=== PATIENT | female | born 1985 | race Caucasian/White ===

== ENCOUNTER 2017-05-31 12:22 | Outpatient (CLI) | payer MEDICAID, OTHER ==
[2017-05-31] MEDS ORDERED: LACTATED RINGERS 2,000 ML ONE (12:40)
[2017-05-31] MEDS ORDERED: LACTATED RINGERS 1,000 ML IV ONE (12:56)
--- NOTE | 2017-05-31 14:27 | Ultrasound Report ---
ULTRASOUND OB LIMITED History: well being, verify if presentation Technique: Transabdominal ultrasound with Doppler interrogation. Gestation: Single Position: Breech Heart Rate: 131 BPM
[2017-05-31] MEDS ORDERED: BRETHINE SUB-Q ONE (14:43)
[2017-05-31 14:50] VITALS: BP 121/70
[2017-05-31] MEDS ORDERED: LACTATED RINGERS 1,000 ML IV SCH (15:00)
== END 2017-05-31 16:00 | disposition home or self-care (01) ==
LOC: TRG 12:22
PROVIDERS: ATTEND Obstetrics & Gynecology
DX: O32.1XX0 Maternal care for breech presentation, not applicable or unspecified (principal); O47.1 False labor at or after 37 completed weeks of gestation; Z3A.37 37 weeks gestation of pregnancy
CPT/HCPCS: 59025; 76815; 96360; 96361; 96372; J3105; J7120

== ENCOUNTER 2017-06-11 12:43 | Inpatient (IN) | payer OTHER ==
--- NOTE | 2017-06-11 14:58 | Ultrasound Report ---
FINAL REPORT EXAM: US OB LIMITED HISTORY: breech presentation TECHNIQUE: Limited transabdominal OB ultrasound. PRIORS: None currently available. FINDINGS: Single intrauterine . Presentation: Breech. heart rate: 139 BPM. IMPRESSION: Single live intrauterine .
[2017-06-11] MEDS ORDERED: LACTATED RINGERS 1,000 ML IV ONE (15:00)
[2017-06-11] MEDS ORDERED: REGLAN IV ONE ×2 (15:58→17:52)
[2017-06-11] MEDS ORDERED: PEPCID IV SCH ×2 (15:58→17:52)
[2017-06-11] MEDS ORDERED: BICITRA PO SCH (15:58)
[2017-06-11] MEDS ORDERED: ANCEF/STERILE WATER 2 GM/20 ML 2 GM/20 ML SYRINGE IV NR ×2 (16:00→18:00)
[2017-06-11] MEDS ORDERED: PITOCin/NS 20 UNIT/1000ML DRIP 20 UNITS/1,000 ML BAG IV SCH ×3 (16:00→21:00)
[2017-06-11] MEDS ORDERED: BRETHINE SUB-Q SCH (16:02)
[2017-06-11 16:14] LABS: Basophils % (Auto) 0.2 % (0.0-1.8); Eosinophils % (Auto) 0.2 % (0.0-4.3); Hematocrit 37.1 % (30.3-42.9); Hemoglobin 12.7 gm/dl (10.1-14.3); Lymphocytes # (Auto) 1.8 K/mm3 (1.2-5.4); Mean Corpuscular HGB Conc 34 % (30-34); Mean Corpuscular Hemoglobin 33 pg (28-32); Mean Corpuscular Volume 96 fl (79-97); Monocytes # (Auto) 0.6 K/mm3 (0.0-0.8); Platelet Count 166 K/mm3 (140-440); Red Blood Count 3.89 M/mm3 (3.65-5.03); Red Cell Distribution Width 14.5 % (13.2-15.2)
[2017-06-11] MEDS: LACTATED RINGERS 1,000 ML IV SCH ×2 (17:00→18:53)
[2017-06-11] MEDS ORDERED: BICITRA PO ONE (17:52)
[2017-06-11] MEDS ORDERED: BRETHINE SUB-Q PRN (17:53)
[2017-06-11] MEDS ORDERED: BRETHINE IVP PRN (17:53)
[2017-06-11] MEDS ORDERED: LACTATED RINGERS 1,000 ML IV SCH (18:00)
--- NOTE | 2017-06-11 18:01 | History and Physical Report ---
History of Present Illness Date of examination: 06/11/17 Date of admission: 06/11/17 12:44 Chief complaint: 39 weeks in labor, breech. History of present illness: Patient is 32 year old , LMP 08/24/16, EDC 06/17/17 at 39 weeks and 1 day who complains of having contractions since this AM. She denies any fluid leakage or bleeding. She reports good movement. Exam: cervix: 3cm/80%/-2. Sono at bedside: breech presentation. Past History Past Surgical History: no surgical history Social history: no significant social history - Obstetrical History Expected Date of Delivery: 06/17/17 Actual Gestation: 39 Week(s) 1 Day(s) : 2 Para: 1 Number of Pregnancies: 1 Number of Living Children: 1 Medications and Allergies Allergies Allergy/AdvReac Type Severity Reaction Status Date / Time No Known Allergies Allergy Verified 05/31/17 12:35 Home Medications Medication Instructions Recorded Confirmed Last Taken Type Vit-Fe Fumar-FA [ 1 tab PO QDAY 05/31/17 05/31/17 05/30/17 21: 00 History Vitamin] Active Meds: Active Medications Citric Acid/Sodium Citrate (Bicitra) 30 ml PO ONCE TORI Stop: 06/12/17 15:57 Famotidine (Pepcid) 20 mg IV ONCE TORI Stop: 06/12/17 15:57 Famotidine (Pepcid) 20 mg IV ONCE ONE Stop: 06/11/17 17:53 Cefazolin Sodium (Ancef/Sterile Water 2 Gm/20 Ml) 2 gm in 20 mls @ 80 mls/hr IV PREOP NR PRN Reason: Protocol Stop: 06/12/17 15:59 Lactated Ringer's (Lactated Ringers) 1,000 mls @ 2,250 mls/hr IV PREOP TORI Stop: 06/12/17 16:27 Oxytocin/Sodium Chloride (Pitocin/Ns 20 Unit/1000ml Drip) 20 units in 1,000 mls @ 0 mls/hr IV TITR TORI PRN Reason: As Directed Lactated Ringer's (Lactated Ringers) 1,000 mls @ 2,250 mls/hr IV PREOP TORI Stop: 06/12/17 18:27 Oxytocin/Sodium Chloride (Pitocin/Ns 20 Unit/1000ml Drip) 20 units in 1,000 mls @ 0 mls/hr IV TITR TORI PRN Reason: As Directed Cefazolin Sodium (Ancef/Sterile Water 2 Gm/20 Ml) 2 gm in 20 mls @ 80 mls/hr IV PREOP NR PRN Reason: Protocol Stop: 06/12/17 17:59 Influenza Virus Vaccine Quadrival (Fluarix Quad [id number](36 Mos+) 0.5 ml IM .ONCE ONE Stop: 06/12/17 12:01 Metoclopramide HCl (Reglan) 10 mg IV ONCE ONE Stop: 06/11/17 17:53 Terbutaline Sulfate (Brethine) 0.25 mg SUB-Q ONCE TORI Stop: 06/12/17 16:01 - Vital Signs Vital signs: Vital Signs Temp 99.1 F 06/11/17 13:05 Temp Pulse Resp BP Pulse Ox 99.1 F 55 L 127/59 06/11/17 13:05 06/11/17 13:09 06/11/17 13:09 - Physical Exam Cardiovascular: Normal S1, Normal S2 Lungs: Positive: Clear to auscultation Vulva: both: normal Adnexa: both: normal Deep Tendon Reflex Grade: Normal +2 - Obstetrical FHR: category 1 Uterine Contraction Monitor Mode: External Cervical Dilatation: 3 Cervical Effacement Percentage: 80 station: -2 Uterine Contraction Pattern: Irregular Results Result Diagrams: 06/11/17 15:30 Abnormal lab results 06/11/17 Range/Units 15:30 MCH 33 H (28-32) pg Seg Neutrophils % 73.6 H (40.0-70.0) % All other labs normal. Assessment and Plan - Patient Problems (1) 39 weeks gestation of Current Visit: Yes Status: Acute (2) Active labor Current Visit: Yes Status: Acute Plan to address problem: Admit to labor floor. Routine admitting labs. and toco monitoring. Pt was counselled for C/section for breech. (3) Breech presentation Current Visit: Yes Status: Acute Plan to address problem: Patient has been counselled for C/section. c2 tactical analysis technician was used. Risks, benefits of the procedure were discussed in detail with the patient such as infection, hemorrhage requiring blood transfusion, injury to the bowel, bladder and blood vessels. She expressed understanding, her questions were answered, she gave her informed consent. Anesthesia has been notified. Pt is NPO.
[2017-06-11] MEDS ORDERED: PHENERGAN PO PRN ×2 (18:15→21:14)
[2017-06-11] MEDS ORDERED: NARCAN 0.4 MG/1 ML IV PRN ×3 (18:15→21:14)
[2017-06-11] MEDS ORDERED: DILAUDID IV PRN ×2 (18:15)
[2017-06-11] MEDS ORDERED: PHENERGAN PR PRN ×2 (18:15→21:14)
[2017-06-11] MEDS ORDERED: ZOFRAN IV PRN ×3 (18:15→21:14)
--- NOTE | 2017-06-11 18:15 | Anesthesia Consultation ---
Anesthesia Consult and Med Hx Date of service: 06/11/17 - Airway Anesthetic Teeth Evaluation: Good ROM Head & Neck: Adequate Mental/Hyoid Distance: Adequate Mallampati Class: Class I Intubation Access Assessment: Good - Pulmonary Exam CTA: Yes - Cardiac Exam Cardiac Exam: RRR - Pre-Operative Health Status ASA Pre-Surgery Classification: ASA2 Proposed Anesthetic Plan: General, Spinal - Pulmonary Hx Asthma: No COPD: No Hx Pneumonia: No - Cardiovascular System Hx Hypertension: No - Central Nervous System Hx Seizures: No Hx Psychiatric Problems: No - Endocrine Hx Renal Disease: No Hx End Stage Renal Disease: No Hx Hypothyroidism: No Hx Hyperthyroidism: No - Hematic Hx Anemia: No Hx Sickle Cell Disease: No - Other Systems Hx Alcohol Use: No
[2017-06-11] MEDS ORDERED: SODIUM CHLORIDE FLUSH SYRINGE 10 ML IV SCH (19:00)
[2017-06-11] MEDS ORDERED: MORPHINE ONE (19:05)
[2017-06-11] MEDS ORDERED: NEO SYNEPHRINE ONE (19:28)
[2017-06-11] MEDS ORDERED: NACL 0.9% IR ONE (19:30)
[2017-06-11] MEDS ORDERED: fentaNYL-BUPIV 2 MCG/ML-0.125% 200 MCG/100 ML BAG EPIDURAL SCH (19:30)
[2017-06-11] MEDS ORDERED: WATER FOR IRRIG STERILE IR ONE (19:30)
[2017-06-11] MEDS ORDERED: METHERGINE IM ONE ×2 (19:55→20:02)
[2017-06-11] MEDS ORDERED: VERSED ONE (20:31)
[2017-06-11] MEDS ORDERED: TUCKS PAD TP PRN (20:55)
[2017-06-11] MEDS ORDERED: MYLICON PO PRN (20:55)
[2017-06-11] MEDS ORDERED: SENOKOT PO PRN (20:55)
[2017-06-11] MEDS ORDERED: MORPHINE IV PRN (20:55)
[2017-06-11] MEDS ORDERED: TORADOL IV PRN ×2 (20:55)
[2017-06-11] MEDS ORDERED: LANSINOH TP PRN (20:55)
[2017-06-11] MEDS ORDERED: TYLENOL PO PRN (20:55)
[2017-06-11] MEDS ORDERED: SODIUM CHLORIDE FLUSH SYRINGE 10 ML IV NR ×2 (21:00→22:00)
--- NOTE | 2017-06-11 21:05 | Operative Report ---
Operative Report Operative Report: Preoperative diagnosis: 1. SIUP at 39 weeks and 1 day in active labor. 2. Breech presentation. Postoperative diagnosis: same as preop diagnosis. Procedure: Primary low transverse C/section. Surgeon: Dr. Russell Millwright Instructor: none Anesthesia: spinal IVF: 1 liter RL EBL: 1 liter Urine: 200 cc clear Complications: Intraoperative uterine atony responsive to IV pitocin and IM methergine. Intraoperative findings: 1. Female found in an SHARYN position, delivered at 7:19 PM, Apgars of 9/9 at 1 and 5 mins respectively. 2. Filmy adhesions between parietal peritoneum and omentum. 3. Normal ovaries and fallopian tubes bilaterally. Procedure details: Risks, benefits, and alternatives of the procedure were discussed in detail with the patient which included but not limited to the risk of infection, hemorrhage requiring blood transfusion, and injury to the bowel or bladder and blood vessels. The patient expressed understanding, her questions were answered , and she gives informed consent. The patient was taken to the operating room with an IV fluids infusing Ringers lactate. In the operating room, she was placed in a sitting position and given spinal anesthesia. She was then placed in the dorsal supine position with a leftward tilt. Forrester catheter and Venodyne boots were placed. The abdomen was washed and she was prepared and draped in usual sterile fashion. After confirming adequate spinal anesthesia, a Pfannenstiel skin incision was made in the lower abdomen about 2 cm above the pubic symphysis using the scalpel. This incision was carried down to the underlying fascia using the Bovie. 2 straight Kocker clamps were used to grasp the upper edge of the fascia from which the underlying rectus abdominis muscle was dissected off using the Bovie. A similar procedure was done with the edge of the fascia to dissect the underlying rectus abdominis muscle. The muscle was bluntly from the midline by pulling. The parietal peritoneum was grasped with 2 hemostat clamps and entered sharply using Metzenbaum scissors. A quick survey of the anatomy revealed a gravid uterus, normal fallopian tubes and ovaries bilaterally. There were multiple filmy adhesions between the anterior peritoneum to the omentum. A bladder flap was created. Rich'O retractor was placed at the incision for proper visualization. A low transverse incision was made in the lower uterine segment using the scalpel and extended bilaterally in a curvilinear fashion using bandage seizures. The amniotic sac was ruptured, there was copious amount of clear amniotic fluids. The was found in a walter breech presentation. The body was delivered up to the thorax, the anterior shoulder was delivered, the infant was rotated to 180 to bring the posterior shoulder to an anterior position which was delivered. Then, the head was flexed and delivered atraumatically at 7:55 PM. The cord was clamped 2 and cut and infant was handed off to awaiting superintendent car construction. The was a female, Apgars were 9 at 1 minute and 9 at 5 minutes, weight 8 lbs. 15 oz. Cord blood was collected. The placenta was delivered manually and it was complete with a three-vessel cord. The uterine cavity was cleaned of clots and debris using dry lap sponges. The uterine Incision was was repaired in a running locked fashion using 0 Vicryl sutures. The second layer of imbrication was placed. There was uterine atony responsive to IV pitocin and IM merthergine. The gutters were cleaned of clots and debris using dry lap sponges. After assuring adequate hemostasis, the instruments were removed from the abdomen. The fascia was closed in a running fashion using 0 Vicryl sutures. The subcutaneous adipose tissue was closed with 2-0 Vicryl sutures. The skin was closed with kay. Sterile dressing was placed. The counts of laps, needles, sponges, and instruments are correct 2. The patient tolerated the procedure well. She was taken to the recovery room in a stable condition.
--- NOTE | 2017-06-11 21:14 | Post Anesthesia Evaluation ---
- Post Anesthesia Evaluation Patient Participated: Yes Airway Patent: Yes Stable Respiratory Function: Yes Nausea/Vomiting: No Temp > 96.8F: Yes Pain Manageable: Yes Adequeate Hydration: Yes Anesthesia Complications: No Block Receding Appropriately: Yes Patient on Ventilator: No
--- NOTE | 2017-06-11 21:14 | Anesthesia Consultation ---
Anesthesia Consult and Med Hx Date of service: 06/11/17 - Airway Anesthetic Teeth Evaluation: Good ROM Head & Neck: Adequate Mental/Hyoid Distance: Adequate Mallampati Class: Class II Intubation Access Assessment: Probably Good - Pulmonary Exam CTA: Yes - Cardiac Exam Cardiac Exam: RRR - Pre-Operative Health Status ASA Pre-Surgery Classification: ASA2 Proposed Anesthetic Plan: Epidural, Spinal - Pulmonary Hx Smoking: No Hx Asthma: No COPD: No Hx Pneumonia: No - Cardiovascular System Hx Hypertension: No - Central Nervous System Hx Seizures: No Hx Psychiatric Problems: No - Endocrine Hx Renal Disease: No Hx End Stage Renal Disease: No Hx Hypothyroidism: No Hx Hyperthyroidism: No - Hematic Hx Anemia: No Hx Sickle Cell Disease: No - Other Systems Hx Alcohol Use: No
[2017-06-12] MEDS: LACTATED RINGERS 1,000 ML IV SCH ×2 (01:35→09:38)
[2017-06-12] MEDS ORDERED: BOOSTRIX IM ONE (06:00)
[2017-06-12 08:57] LABS: Hematocrit 29.6 % (30.3-42.9); Hemoglobin 10.4 gm/dl (10.1-14.3)
--- NOTE | 2017-06-12 09:18 | Progress Note ---
Assessment and Plan - Patient Problems (1) S/P primary low transverse Current Visit: Yes Status: Acute Plan to address problem: POD 1 - stable Discontinue funes catheter; encourage ambulation Continue routine postop orders (2) Anemia in puerperium, baby delivered during current episode of care Current Visit: Yes Status: Acute Plan to address problem: Mild anemia - asymptomatic Initiate iron therapy with ferrous sulfate 325mg PO qd Subjective - Subjective Date of service: 06/12/17 Patient reports: appetite normal, pain well controlled, no voiding normally ( funes catheter in place), no flatus, no bowel movement [place]: doing well, nursing well Objective - Vital Signs Latest vital signs: Vital Signs Temp Pulse Resp BP BP Pulse Ox 06/11/17 23:15 98.8 F 60 18 131/70 97 06/11/17 22:25 98.1 F 57 L 20 122/59 97 06/11/17 22:20 63 13 135/78 98 06/11/17 22:05 55 L 23 125/71 96 06/11/17 21:50 58 L 19 137/72 97 06/11/17 21:39 80 116/66 06/11/17 21:35 54 L 19 125/70 98 06/11/17 21:32 18 06/11/17 21:20 52 L 21 128/61 99 06/11/17 21:15 53 L 20 123/58 98 06/11/17 21:10 97.8 F 55 L 18 125/59 97 06/11/17 13:09 55 L 127/59 06/11/17 13:05 99.1 F Intake and Output 06/11/17 06/12/17 06/12/17 23:59 07:59 15:59 Intake Total 1200 Output Total 500 700 Balance 700 -700 Intake: IV 1200 Output: Urine 500 600 Indwelling Catheter 600 Uretheral (Funes) 200 Emesis 100 Other: Total, Output Amount 250 Estimated Blood Loss 1,000 - Exam Cardiovascular: Present: Regular rate, Normal S1, No murmurs Lungs: Present: Clear to auscultation, Normal air movement Abdomen: Present: normal appearance, soft Vulva: both: normal Uterus: Present: normal, firm, fundal height at umbilicus Extremities: Present: normal Deep Tendon Reflex Grade: Normal +2 Incision: Present: normal, dry, dressed - Labs Labs: Abnormal lab results 06/11/17 06/12/17 Range/Units 15:30 08:38 Hct 29.6 L D (30.3-42.9) % MCH 33 H (28-32) pg Seg Neutrophils % 73.6 H (40.0-70.0) %
[2017-06-12] MEDS ORDERED: Fluarix Quad 2017-2018(36 MOS+ IM ONE (12:00)
[2017-06-12] MEDS: PRENATAL VITAMIN PO SCH (14:53)
[2017-06-12] MEDS: MOTRIN PO PRN (20:07)
[2017-06-13] MEDS: NORCO 5/325 PO PRN ×2 (05:38→14:11)
--- NOTE | 2017-06-13 09:41 | Progress Note ---
Assessment and Plan A: POD#2 s/p primary c/s Anemia; Asymptomatic: Ferrous sulfate Stable P: Routine PP care Discharge home in am Incision check in 1 week Subjective - Subjective Date of service: 06/13/17 Principal diagnosis: POD2 s/p Primary c/s Patient reports: appetite normal, voiding normally, pain well controlled, flatus , ambulating normally : doing well, nursing well Objective - Vital Signs Latest vital signs: Vital Signs Temp Pulse Resp BP Pulse Ox 06/12/17 23:18 98.3 F 78 20 102/43 94 06/12/17 20:07 18 - Exam Breasts: Present: normal, Cardiovascular: Present: Regular rate, Normal S1, Normal S2, No murmurs Lungs: Present: Clear to auscultation, Normal air movement Abdomen: Present: normal appearance, soft, normal bowel sounds, other Vulva: both: normal Uterus: Present: normal, firm, fundal height below umbilicus (-1) Extremities: Present: normal Deep Tendon Reflex Grade: Normal +2 Incision: Present: normal, dry, intact, dressed
--- NOTE | 2017-06-13 09:43 | Discharge Summary ---
Providers - Providers Date of Admission: 06/11/17 12:44 Date of discharge: 06/14/17 Attending physician: IRASEMA COLON MD Primary care physician: IRASEMA COLON MD Hospitalization Reason for admission: active labor, IUP at term Delivery: (Primary; Breech presentation) Procedure: section, primary low transverse Procedure details: See Operative note Incision: normal, dry, intact, dressed Other procedures: none complications: none Discharge diagnosis: IUP at term delivered Elizabeth baby: female Hospital course: uneventful Condition at discharge: Good Disposition: DC-01 TO HOME OR SELFCARE Plan - Discharge Medications Prescriptions: HYDROcodone/APAP 5-325 [[place] 5-325 mg TAB] 1 each PO Q6H PRN #30 tablet PRN Reason: Pain, Moderate (4-6) Ibuprofen [Motrin 800 MG tab] 800 mg PO Q6H PRN #30 tablet PRN Reason: Pain, Mild (1-3) - Provider Discharge Summary Activity: no sex for 6 weeks, no heavy lifting 4 weeks, no strenuous exercise Diet: routine Instructions: routine Additional instructions: [] Smoking cessation referral if applicable(refer to patient education folder for contact #) [] Refer to [facility] Booklet Call your doctor immediately for: * Fever > 100.5 * Heavy vaginal bleeding ( >1 pad per hour) * Severe persistent headache * Shortness of breath * Reddened, hot, painful area to leg or breast * Drainage or odor from incision. * Keep incision clean and dry at all times and follow doctor's instructions regarding bathing/showering - Follow up plan Follow up: IRASEMA COLON MD [Primary Care Provider] - 7 Days
[2017-06-13] MEDS: PRENATAL VITAMIN PO SCH (10:00)
[2017-06-13] MEDS: MOTRIN PO PRN (13:38)
[2017-06-14] MEDS: NORCO 5/325 PO PRN ×3 (00:27→13:31)
[2017-06-14] MEDS: MOTRIN PO PRN ×3 (00:27→13:30)
[2017-06-14 09:11] VITALS: BP 102/59
[2017-06-14] MEDS ORDERED: Fluarix Quad 2017-2018(36 MOS+ IM ONE (10:55)
== END 2017-06-14 16:30 | disposition home or self-care (01) | DRG 766 ==
LOC: TRG 12:43 → APU 12:44 → TRG 12:45 → OB 22:50
PROVIDERS: ADMIT Obstetrics & Gynecology; ATTEND Obstetrics & Gynecology
PROC: 10D00Z1 Extraction of Products of Conception, Low, Open Approach (ICD-10-PCS; principal; 2017-06-11)
PROC: 3E0234Z Introduction of Serum, Toxoid and Vaccine into Muscle, Percutaneous Approach (ICD-10-PCS; 2017-06-14)
DX: O32.1XX0 Maternal care for breech presentation, not applicable or unspecified (principal); Z37.0 Single live birth; Z3A.39 39 weeks gestation of pregnancy; O90.81 Anemia of the puerperium; D64.9 Anemia, unspecified; Z23 Encounter for immunization
CPT/HCPCS: 36415; 76815; 85014; 85018; 85025; 86850; 86900; 86901; 88307; 90471; 90686; 90715; 99211; A6250; G0008; G0463; J0690; J1170; J1885; J2210; J2250; J2270; J2370; J2405; J2590; J3105; J7120